=== PATIENT | female | born 1955 | race Caucasian/White ===

== ENCOUNTER 2020-07-09 14:16 | Inpatient (IN) | payer BC, OTHER ==
[~2020-07-09] VITALS: Ht 175.3 cm; Wt 88.5 kg
[2020-07-09] MEDS ORDERED: ONDANSETRON 4MG INJ ONE (14:37)
[2020-07-09] MEDS ORDERED: MORPHINE 4 MG SYG ONE (14:37)
[2020-07-09 15:08] LABS: BASOPHILS % (AUTO) 0.6 % (0.0-5.0); EOSINOPHILS % (AUTO) 0.6 % (0.0-8.0); HEMATOCRIT 33.2 % (36-48); MEAN CORPUSCULAR HEMOGLOBIN 32.6 pg (27.0-33.0); MEAN CORPUSCULAR VOLUME 95.7 fL (79-99); MONOCYTES % (AUTO) 6.7 % (3.0-13.0); NEUTROPHILS % (AUTO) 78.5 % (40.0-77.0); PLATELET COUNT (AUTO) 305 K/uL (130-400); RED BLOOD CELL COUNT(AUTO) 3.47 MIL/uL (4.00-5.50); RED CELL DISTRIBUTION WIDTH 13.7 % (11.0-15.5); WHITE BLOOD COUNT (AUTO) 15.8 K/uL (4.8-10.8)
[2020-07-09 15:23] LABS: INR 0.97 (0.85-1.15); PROTHROMBIN TIME 10.6 SEC (9.6-11.6)
[2020-07-09 15:25] LABS: CREATININE 0.8 mg/dL (0.5-1.5); PARTIAL THROMBOPLASTIN TIME 25.6 SEC (26.3-35.5); POTASSIUM 4.2 mmol/L (3.5-5.1)
[2020-07-09 15:30] LABS: ALBUMIN 3.1 g/dL (3.5-5.0); BILIRUBIN,TOTAL 0.8 mg/dL (0.2-1.0); TOTAL PROTEIN, SERUM 7.1 g/dL (6.0-8.3)
[2020-07-09] MEDS ORDERED: ACETAMINOPHEN 325 MG TAB PO PRN ×2 (16:15)
[2020-07-09] MEDS ORDERED: MORPHINE 2 MG SYG IV PRN (16:15)
[2020-07-09] MEDS ORDERED: TETANUS/DIPHTHERIA TOXOID [ADULT] 0.5 ML VIAL IM ONE (16:16)
[2020-07-09] MEDS ORDERED: FENTANYL CITRATE PF 50 MCG/1 ML 2ML VIAL ONE (16:38)
[2020-07-09 21:00] VITALS: BP 141/78
[2020-07-09] MEDS ORDERED: PROP20TA7 PO (21:00)
[2020-07-09] MEDS: METOPROLOL TARTRATE 25 MG TAB PO SCH (21:22)
[2020-07-09] MEDS: ONDANSETRON 4MG INJ IV PRN (21:22)
[2020-07-09] MEDS: FAMOTIDINE 20MG VIAL IV SCH (21:22)
[2020-07-09] MEDS: MORPHINE 4 MG SYG IV PRN (21:23)
[2020-07-09 23:56] VITALS: BP 106/68
[2020-07-09 23:57] LABS: APPEARANCE,URINE Cloudy (CLEAR); BILIRUBIN,URINE Negative (NEGATIVE); COLOR,URINE Dark Yellow (YELLOW); GLUCOSE, URINE (UA) Negative (NEGATIVE); KETONES,URINE Trace mg/dL (NEGATIVE); LEUKOCYTE ESTERASE ,URINE Moderate (NEGATIVE); NITRATE,URINE Negative (NEGATIVE); OCCULT BLOOD,URINE Negative (NEGATIVE); PH,URINE 5.5 (5.0-8.0); PROTEIN,URINE Trace mg/dL (NEGATIVE)
[2020-07-10] VITALS (27 sets, daily range): BP systolic 110–174; BP diastolic 52–93
[2020-07-10 00:15] LABS: BACTERIA,URINE Rare /HPF (None Seen); RBC,URINE 0-1 /HPF (0-1); SQUAMOUS EPITHELIAL CELL,UR Moderate /HPF (0-2)
[2020-07-10] MEDS: MORPHINE 4 MG SYG IV PRN ×5 (01:37→23:31)
[2020-07-10 09:20] LABS: HEMATOCRIT 30.2 % (36-48); MEAN CORPUSCULAR HGB CONC 33.8 g/dL (32.0-36.0); MEAN CORPUSCULAR VOLUME 97.7 fL (79-99); RED BLOOD CELL COUNT(AUTO) 3.09 MIL/uL (4.00-5.50); RED CELL DISTRIBUTION WIDTH 14.1 % (11.0-15.5)
[2020-07-10] MEDS: FAMOTIDINE 20MG VIAL IV SCH ×2 (09:27→19:41)
[2020-07-10] MEDS: METOPROLOL TARTRATE 25 MG TAB PO SCH ×2 (09:27→20:46)
[2020-07-10 09:36] LABS: ALBUMIN 2.7 g/dL (3.5-5.0); BILIRUBIN,TOTAL 1.7 mg/dL (0.2-1.0); CREATININE 0.9 mg/dL (0.5-1.5)
[2020-07-10] MEDS ORDERED: POTASSIUM CHLORIDE 20MEQ/100ML 100 ML IV PRN ×2 (09:45→17:00)
[2020-07-10] MEDS ORDERED: LIDOCAINE HCL-MPF 1% 2ML VIAL IV PRN (09:45)
[2020-07-10] MEDS: ZOSYN 3.375GM+NS 50ML 50 ML IV SCH ×2 (11:23→19:30)
[2020-07-10] MEDS ORDERED: ROPIVACAINE 0.5% 5MG/ML 30ML IJ ONE (14:20)
[2020-07-10] MEDS ORDERED: PROPOFOL 10 MG/ML 20ML VIAL IV ONE (14:23)
[2020-07-10] MEDS ORDERED: MIDAZOLAM HCL 1 MG/ML 2ML VIAL ONE (14:23)
[2020-07-10] MEDS ORDERED: ROCURONIUM 10MG/1ML SYR 10 MG/ML ML ONE (14:23)
[2020-07-10] MEDS ORDERED: FENTANYL CITRATE PF 50 MCG/1 ML 2ML VIAL ONE (14:23)
[2020-07-10] MEDS ORDERED: EPHEDRINE SULFATE 50 MG/ML AMPULE ONE (16:02)
[2020-07-10] MEDS ORDERED: FERROUS FUMARATE 324 MG TABLET PO PRN (17:00)
[2020-07-10] MEDS ORDERED: POTASSIUM CHLORIDE 10% ELIXIR 20 MEQ/15 ML UDCUP PO PRN (17:00)
[2020-07-10] MEDS: 0.9%NACL 1000ML 1,000 ML IV SCH (17:00)
[2020-07-10] MEDS: ACETAMINOPHEN 500 MG TABLET PO SCH ×2 (17:00→23:31)
[2020-07-10] MEDS ORDERED: CALCIUM CARB 500MG PO PRN (17:00)
[2020-07-10] MEDS ORDERED: DIPHENHYDRAMINE HCL 25 MG CAPSULE PO PRN (17:00)
[2020-07-10] MEDS ORDERED: DiphenhydrAMINE HCL 50 MG/ML VIAL IVP PRN (17:00)
[2020-07-10] MEDS ORDERED: LABETALOL 20MG VIAL IV ONE (18:19)
[2020-07-10] MEDS ORDERED: MEPERIDINE-PF 25 MG/ML SYG ONE (18:44)
[2020-07-10] MEDS: CEFAZOLIN SODIUM 100 GM IV SCH (20:46)
[2020-07-10] MEDS: KCL 20 MEQ ERTAB PO PRN (20:46)
[2020-07-10] MEDS: HYDROCODONE/ACETAMINOPHEN 5/325 MG TAB PO PRN (20:47)
[2020-07-10] MEDS: ONDANSETRON 4MG INJ IV PRN (23:33)
[2020-07-11] VITALS (7 sets, daily range): BP systolic 100–132; BP diastolic 58–80
[2020-07-11] MEDS: ZOSYN 3.375GM+NS 50ML 50 ML IV SCH ×3 (00:08→20:08)
[2020-07-11] MEDS: KCL 20 MEQ ERTAB PO PRN ×3 (00:26→20:19)
[2020-07-11] MEDS: HYDROCODONE/ACETAMINOPHEN 5/325 MG TAB PO PRN ×2 (01:10→06:36)
[2020-07-11] MEDS: 0.9%NACL 1000ML 1,000 ML IV SCH ×2 (03:25→13:00)
[2020-07-11] MEDS: MORPHINE 4 MG SYG IV PRN ×5 (03:25→20:10)
[2020-07-11] MEDS: TRAMADOL HCL 50 MG TABLET PO PRN ×2 (05:06→13:35)
[2020-07-11] MEDS: CEFAZOLIN SODIUM 100 GM IV SCH (05:07)
[2020-07-11 05:11] LABS: HEMATOCRIT 26.4 % (36-48); MEAN CORPUSCULAR HEMOGLOBIN 32.4 pg (27.0-33.0); MEAN CORPUSCULAR HGB CONC 32.2 g/dL (32.0-36.0); MEAN CORPUSCULAR VOLUME 100.8 fL (79-99); RED BLOOD CELL COUNT(AUTO) 2.62 MIL/uL (4.00-5.50); RED CELL DISTRIBUTION WIDTH 14.2 % (11.0-15.5); WHITE BLOOD COUNT (AUTO) 10.9 K/uL (4.8-10.8)
[2020-07-11 05:42] LABS: ALBUMIN 2.2 g/dL (3.5-5.0); BILIRUBIN,TOTAL 1.4 mg/dL (0.2-1.0); POTASSIUM 3.3 mmol/L (3.5-5.1); TOTAL PROTEIN, SERUM 5.2 g/dL (6.0-8.3)
[2020-07-11 05:51] LABS: CREATININE 0.7 mg/dL (0.5-1.5)
[2020-07-11] MEDS: POLYETHYLENE GLYCOL 3350 17 GM POWD.PACK PO SCH (07:53)
[2020-07-11] MEDS: FAMOTIDINE 20MG VIAL IV SCH ×2 (07:53→20:09)
[2020-07-11] MEDS: METOPROLOL TARTRATE 25 MG TAB PO SCH ×2 (07:54→20:09)
[2020-07-11] MEDS: ACETAMINOPHEN 500 MG TABLET PO SCH ×2 (07:58→16:28)
[2020-07-11] MEDS: PSYLLIUM SEED 1 EACH PACKET PO SCH (12:43)
[2020-07-12 00:10] VITALS: BP 123/77
[2020-07-12] MEDS: ACETAMINOPHEN 500 MG TABLET PO SCH ×3 (01:00→16:43)
[2020-07-12] MEDS: MORPHINE 4 MG SYG IV PRN ×4 (03:19→21:25)
[2020-07-12] MEDS: ZOSYN 3.375GM+NS 50ML 50 ML IV SCH (03:19)
[2020-07-12 03:49] VITALS: BP 139/92
[2020-07-12 08:00] VITALS: BP 129/71
[2020-07-12] MEDS: METOPROLOL TARTRATE 25 MG TAB PO SCH ×2 (08:36→20:00)
[2020-07-12] MEDS: FAMOTIDINE 20MG VIAL IV SCH ×2 (08:36→19:59)
[2020-07-12] MEDS: POLYETHYLENE GLYCOL 3350 17 GM POWD.PACK PO SCH (09:00)
[2020-07-12 12:05] VITALS: BP 114/63
[2020-07-12] MEDS: PSYLLIUM SEED 1 EACH PACKET PO SCH (12:46)
[2020-07-12] MEDS: HYDROCODONE/ACETAMINOPHEN 5/325 MG TAB PO PRN ×3 (14:37→23:54)
[2020-07-12 16:00] VITALS: BP 148/75
[2020-07-12] MEDS: LUBIPROSTONE 24 MCG CAP PO SCH ×2 (16:43→16:51)
[2020-07-12] MEDS ORDERED: BISACODYL 5 MG TABLET.DR PO PRN (17:00)
[2020-07-12 19:41] VITALS: BP 133/76
[2020-07-13] VITALS (20 sets, daily range): BP systolic 110–138; BP diastolic 66–82
[2020-07-13] MEDS: ACETAMINOPHEN 500 MG TABLET PO SCH ×4 (00:28→16:24)
[2020-07-13 05:18] LABS: HEMATOCRIT 28.7 % (36-48); MEAN CORPUSCULAR HEMOGLOBIN 31.8 pg (27.0-33.0); MEAN CORPUSCULAR HGB CONC 31.7 g/dL (32.0-36.0); MEAN CORPUSCULAR VOLUME 100.3 fL (79-99); RED BLOOD CELL COUNT(AUTO) 2.86 MIL/uL (4.00-5.50); RED CELL DISTRIBUTION WIDTH 14.4 % (11.0-15.5); WHITE BLOOD COUNT (AUTO) 7.2 K/uL (4.8-10.8)
[2020-07-13 05:45] LABS: ALBUMIN 2.6 g/dL (3.5-5.0); BILIRUBIN,TOTAL 0.9 mg/dL (0.2-1.0); CREATININE 0.7 mg/dL (0.5-1.5); POTASSIUM 3.6 mmol/L (3.5-5.1); TOTAL PROTEIN, SERUM 6.3 g/dL (6.0-8.3)
[2020-07-13] MEDS ORDERED: BUPIVACAINE/EPI/PF 0.25% 30ML VIAL IJ ONE (07:53)
[2020-07-13] MEDS: METOPROLOL TARTRATE 25 MG TAB PO SCH ×2 (07:54→19:47)
[2020-07-13] MEDS: LUBIPROSTONE 24 MCG CAP PO SCH ×2 (08:00→16:22)
[2020-07-13] MEDS ORDERED: KETOROLAC 15MG/ML VIAL (15MG/ML) IV PRN (08:15)
[2020-07-13] MEDS ORDERED: POTASSIUM CHLORIDE 20MEQ/100ML 100 ML IV PRN (08:15)
[2020-07-13] MEDS: 0.9%NACL 1000ML 1,000 ML IV SCH ×2 (08:15→17:59)
[2020-07-13] MEDS ORDERED: CEFAZOLIN SODIUM 1 GM VIAL ONE (08:17)
[2020-07-13] MEDS ORDERED: SUCCINYLCHOLINE CHLORIDE 20 MG/ML 10 ML VIAL ONE (08:33)
[2020-07-13] MEDS ORDERED: LIDOCAINE PF 100MG/5ML (2%) SYRINGE 5ML ONE (08:33)
[2020-07-13] MEDS ORDERED: ROCURONIUM 10MG/1ML SYR 10 MG/ML ML ONE (08:34)
[2020-07-13] MEDS ORDERED: PROPOFOL 10 MG/ML 20ML VIAL IV ONE (08:34)
[2020-07-13] MEDS ORDERED: MIDAZOLAM HCL 1 MG/ML 2ML VIAL ONE (08:35)
[2020-07-13] MEDS ORDERED: ROPIVACAINE 0.5% 5MG/ML 30ML IJ ONE (08:44)
[2020-07-13] MEDS: FAMOTIDINE 20MG VIAL IV SCH ×2 (09:00→19:47)
[2020-07-13] MEDS: POLYETHYLENE GLYCOL 3350 17 GM POWD.PACK PO SCH (09:00)
[2020-07-13] MEDS ORDERED: EPHEDRINE SULFATE 50 MG/ML AMPULE ONE (09:17)
[2020-07-13] MEDS ORDERED: DEXAMETHASONE SOD PHOSPHATE 10MG/ML 1ML VIAL ONE (09:22)
[2020-07-13] MEDS ORDERED: NEOSTIGMINE 5MG/5ML SYR IV ONE (10:19)
[2020-07-13] MEDS ORDERED: ONDANSETRON 4MG INJ ONE (10:19)
[2020-07-13] MEDS ORDERED: GLYCOPYRROLATE 1 MG/5 ML SYRINGE ONE (10:19)
[2020-07-13] MEDS: PSYLLIUM SEED 1 EACH PACKET PO SCH (12:00)
[2020-07-13] MEDS: CLINDAMYCIN IVPB 900MG/50ML 50 ML IVPB SCH ×2 (13:25→19:50)
[2020-07-13] MEDS ORDERED: BISACODYL 10 MG SUPP.RECT RC PRN (17:00)
[2020-07-13] MEDS: MORPHINE 4 MG SYG IV PRN (19:42)
[2020-07-13] MEDS: HYDROCODONE/ACETAMINOPHEN 5/325 MG TAB PO PRN (21:25)
[2020-07-14] VITALS: BP 126/81
[2020-07-14] MEDS: MORPHINE 4 MG SYG IV PRN ×3 (00:09→08:30)
[2020-07-14] MEDS ORDERED: HYDROMORPHONE 0.5 MG SYG (0.5MG/0.5ML) ONE ×2 (00:41→02:28)
[2020-07-14] MEDS ORDERED: HYDROMORPHONE 0.5 MG SYG (0.5MG/0.5ML) IVP ONE ×2 (00:45→02:30)
[2020-07-14] MEDS: ACETAMINOPHEN 500 MG TABLET PO SCH ×3 (01:07→16:36)
[2020-07-14] MEDS: HYDROCODONE/ACETAMINOPHEN 5/325 MG TAB PO PRN ×3 (01:40→17:00)
[2020-07-14 04:00] VITALS: BP 152/84
[2020-07-14 05:38] LABS: HEMATOCRIT 25.6 % (36-48); MEAN CORPUSCULAR HEMOGLOBIN 32.7 pg (27.0-33.0); MEAN CORPUSCULAR HGB CONC 33.2 g/dL (32.0-36.0); MEAN CORPUSCULAR VOLUME 98.5 fL (79-99); RED BLOOD CELL COUNT(AUTO) 2.6 MIL/uL (4.00-5.50); RED CELL DISTRIBUTION WIDTH 14.6 % (11.0-15.5)
[2020-07-14 05:55] LABS: ALBUMIN 2.5 g/dL (3.5-5.0); BILIRUBIN,TOTAL 0.8 mg/dL (0.2-1.0); CREATININE 0.7 mg/dL (0.5-1.5); POTASSIUM 3.1 mmol/L (3.5-5.1); TOTAL PROTEIN, SERUM 6.1 g/dL (6.0-8.3)
[2020-07-14] MEDS: KCL 20 MEQ ERTAB PO PRN ×3 (06:41→08:42)
[2020-07-14] MEDS: 0.9%NACL 1000ML 1,000 ML IV SCH (06:45)
[2020-07-14 08:00] VITALS: BP 147/85
[2020-07-14] MEDS ORDERED: FAMOTIDINE 20MG TAB ONE (08:10)
[2020-07-14] MEDS: LUBIPROSTONE 24 MCG CAP PO SCH ×2 (08:31→16:35)
[2020-07-14] MEDS: METOPROLOL TARTRATE 25 MG TAB PO SCH (08:32)
[2020-07-14] MEDS: POLYETHYLENE GLYCOL 3350 17 GM POWD.PACK PO SCH (08:32)
[2020-07-14] MEDS ORDERED: FAMOTIDINE 20MG TAB PO SCH (09:00)
[2020-07-14 11:00] VITALS: BP 141/85
[2020-07-14] MEDS: PSYLLIUM SEED 1 EACH PACKET PO SCH (11:03)
[2020-07-14 16:27] VITALS: BP 131/72
== END 2020-07-14 19:45 | disposition home or self-care (01) | DRG 483 ==
LOC: EDH 14:16 → EDHIP 14:17 → 3AH 20:36
PROVIDERS: ADMIT Internal Medicine; ATTEND Internal Medicine
PROC: 3E0234Z Introduction of Serum, Toxoid and Vaccine into Muscle, Percutaneous Approach (ICD-10-PCS; 2020-07-09)
PROC: 0PSF04Z Reposition Right Humeral Shaft with Internal Fixation Device, Open Approach (ICD-10-PCS; principal; 2020-07-10 14:40)
PROC: 3E0T3BZ Introduction of Anesthetic Agent into Peripheral Nerves and Plexi, Percutaneous Approach (ICD-10-PCS; 2020-07-13)
PROC: 3E0T33Z Introduction of Anti-inflammatory into Peripheral Nerves and Plexi, Percutaneous Approach (ICD-10-PCS; 2020-07-13)
PROC: 0RRJ00Z Replacement of Right Shoulder Joint with Reverse Ball and Socket Synthetic Substitute, Open Approach (ICD-10-PCS; 2020-07-13 09:12)
DX: S42.411A Displaced simple supracondylar fracture without intercondylar fracture of right humerus, initial encounter for closed fracture (principal); E87.1 Hypo-osmolality and hyponatremia; D72.829 Elevated white blood cell count, unspecified; J45.909 Unspecified asthma, uncomplicated; M81.0 Age-related osteoporosis without current pathological fracture; Z20.822 Contact with and (suspected) exposure to COVID-19; I10 Essential (primary) hypertension; E66.9 Obesity, unspecified; Z68.28 Body mass index [BMI] 28.0-28.9, adult; R82.71 Bacteriuria; W01.0XXA Fall on same level from slipping, tripping and stumbling without subsequent striking against object, initial encounter; K71.9 Toxic liver disease, unspecified; T36.0X5A Adverse effect of penicillins, initial encounter; Y92.89 Other specified places as the place of occurrence of the external cause; Y93.89 Activity, other specified; Y99.8 Other external cause status; Z88.2 Allergy status to sulfonamides; Z88.8 Allergy status to other drugs, medicaments and biological substances; Z23 Encounter for immunization; Z98.84 Bariatric surgery status
CPT/HCPCS: 36415; 71045; 73030; 73060; 73070; 73080; 73200; 73562; 76705; 80053; 81001; 84132; 84484; 85025; 85027; 85610; 85730; 87088; 87426; 90714; 93005; C1776; G0378; J0330; J0690; J1100; J1170; J1885; J2001; J2175; J2250; J2270; J2405; J2543; J2704; J2710; J2795; J3010; J3480; J3490; J7030; J7120; U0003